=== PATIENT | female | born 1970 | race Caucasian/White ===

== ENCOUNTER 2018-01-31 21:42 | Emergency (ER) | END 2018-01-31 23:35 | disposition home or self-care (01) ==

== ENCOUNTER 2018-03-27 08:34 | Day surgery (SDC) | END 2018-03-27 14:45 | disposition home or self-care (01) ==

== ENCOUNTER 2018-11-09 08:28 | Emergency (ER) | payer BC ==
[~2018-11-09] VITALS: Wt 78.2 kg
[~2018-11-09 08:28] MED LIST: IBUP-1545 PO; LEVO125T7 PO
[2018-11-09 08:30] VITALS: BP 126/74; RESP 20
[2018-11-09 10:38] VITALS: PULSE 81
[2018-11-09] MEDS ORDERED: IBUP-1542 PO (10:39)
[2018-11-09] MEDS ORDERED: LEVO750T25 PO (10:40)
--- NOTE | 2018-11-15 14:32 | ERD ---
ER Documentation Chief Complaint Chief Complaint COUGH, EAR PAIN, CONGESTION, SORE THROAT, FEVER X 2 WEEKS HPI Patient is a 48-year-old female with no past medical history presents to the ER for concerns of intermittent fevers, cough, ear pain and nasal congestion for the last 2 weeks. Patient states her cough is primarily dry however occasionally productive. Patient denies any chest pain or shortness of breath. Patient states she has tried 2 antibiotics which were prescribed by her primary care physician which have not helped. Patient states 1 of the antibiotics was amoxicillin. Patient reports tactile fevers. Patient reports throat pain now she denies drooling or trismus. Patient denies any neck pain or neck stiffness. Patient denies any nausea, vomiting, abdominal pain or diarrhea. Patient denies any recent travel. Patient's son is also sick contact. ROS All systems reviewed and are negative except as per history of present illness. Medications Home Meds Active Scripts Levofloxacin* (Levaquin*) 750 Mg Tablet, 750 MG PO DAILY for 5 Days, TAB Prov:SHAY SCALES PA-C 11/09/18 Ibuprofen* (Motrin*) 600 Mg Tab, 600 MG PO Q6, #30 TAB Prov:SHAY SCALES PA-C 11/09/18 Reported Medications Ibuprofen* (Ibuprofen*) 800 Mg Tab, 800 MG PO Q6H PRN for PAIN, TAB 03/27/18 Levothyroxine Sodium* (Levothyroxine Sodium*) 125 Mcg Tablet, 125 MCG PO BEFORE BREAKFAST, #30 TAB 03/27/18 Allergies Allergies: Coded Allergies: No Known Drug Allergies (Verified Allergy, Unknown, 03/27/18) PMhx/Soc History of Surgery: No (srinivas breast implant, hysterectomy) Anesthesia Reaction: No Hx Neurological Disorder: No Hx Respiratory Disorders: No Hx Cardiac Disorders: No Hx Psychiatric Problems: No Hx Miscellaneous Medical Probl: No Hx Alcohol Use: No Hx Substance Use: No Hx Tobacco Use: No Smoking Status: Never smoker FmHx Family History: No diabetes, No coronary disease, No other Physical Exam Physical Exam GENERAL: Well-developed, well-nourished female. Appears in no acute distress. Speaking in full sentences HEAD: Normocephalic, atraumatic. EYES: Pupils are equally reactive bilaterally. EOMs grossly intact. No conjunctival erythema. ENT: Bilateral TMs are nonerythematous, nonbulging. Nasal congestion noted on exam. Oropharynx slightly erythematous. No exudates noted. Moist mucous membranes. No uvula deviation. No kissing tonsils. NECK: Supple. No meningismus. Normal range of motion of the neck. LUNG: Clear to auscultation bilaterally. No rhonchi, wheezing, rales or coarse breath sounds. HEART: Regular rate and rhythm. No murmurs, rubs or gallops. EXTREMITIES: Equal pulses bilaterally. No peripheral clubbing, cyanosis or edema. No unilateral leg swelling. NEUROLOGIC: Alert and oriented. Moving all four extremities without any difficulty. Normal speech. Steady gait. SKIN: Normal color. Warm and dry. No rashes or lesions. Procedures/MDM ED COURSE: The patient was stable throughout ED course. I kept the patient and/or family informed of laboratory and diagnostic imaging results throughout the ED course. DIAGNOSTIC IMAGING: Read by radiologist. Patient: JAYESH PAZ : 1970 Age: 48 Sex: F MR #: [id number] DOS: 11/09/18 0906 Ordering MD: SHAY SCALES PA-C Location: [facility] Room/Bed: PROCEDURE: XR Chest. CLINICAL INDICATION: chest pain, cough TECHNIQUE: Single frontal view of the chest was obtained COMPARISON: None FINDINGS: The heart and mediastinum are within normal limits. There is a questionable 1.4 cm right upper lobe nodular opacity. There is no pleural effusion or pneumothorax. RPTAT: AA IMPRESSION: Questionable 1.4 cm right upper lobe nodular opacity. Further evaluation with CT chest is recommended. .Jose Russell MD, MD Date Time Electronically viewed and signed by .Jose Russell MD, MD on 11/09/2018 09:29 .S/ CC: SHAY CSALES PA-C [phone] DIAGNOSTIC IMAGING REPORT Patient: JAYESH PZA : 1970 Age: 48 Sex: F MR #: [id number] DOS: 11/09/18 0000 Ordering MD: SHAY SCALES PA-C Location: [facility] Room/Bed: PROCEDURE: CT chest without contrast. CLINICAL INDICATION: Cough, fever. TECHNIQUE: CT of the chest without contrast was performed on a multidetector high-resolution CT scanner. High-resolution thin slice coronal and sagittal imaging was obtained from the axial source images. The total exam CTDI equals 11 mGy, and the total exam DLP equals 419 mGy-cm. DICOM images are available. One or more of the following dose reduction techniques were utilized: 1.) Automated exposure control 2.) Adjustment of the mA +/- kV according to patient's size 3.) Use of iterative reconstruction technique. COMPARISON: Chest x-ray 11/09/2018 FINDINGS: No focal thyroid lesions are seen. There is no supraclavicular, axillary, mediastinal or hilar lymphadenopathy. Bilateral breast implants are noted. The heart is normal in size. There is no pericardial effusion. The thoracic aorta and main pulmonary artery are normal in caliber. There is no pneumothorax. There is a nodular area of consolidation right upper lobe measuring 9 mm. There are adjacent tiny satellite cluster of nodules. Findings are favored to be infectious in nature given the clinical history. The central airways are patent. there are no definite suspicious nodules identified to correspond to the abnormality identified on recent x-ray. Image portions of the abdomen demonstrates cholelithiasis. The visualized osseous structures are intact. IMPRESSION: Nodular area of consolidation within the right upper lobe with adjacent satellite tiny nodular opacities. Findings are favored to be infectious in natur e given the clinical history. Consider interval follow-up in 3 months to ensure resolution. No definite suspicious nodules to correspond to the abnormality identified on recent chest x-ray. Cholelithiasis. RPTAT: HAP Admit-r Neeraj, Physician Date Time Electronically viewed and signed by Benito Pickard, Physician on 11/09/2018 10:10 AP/ CC: SHAY SCALES PA-C [id number] MEDICAL DECISION MAKING: This is a 48-year-old female who presents with intermittent tactile fevers, cough, sore throat, ear pain and nasal congestion for the last 2 weeks. Patient was afebrile. Patient was not hypoxic. Patient denied recent travel. Cardiac exam was normal. Lung exam was normal. Chest x-ray was obtained and showed a questionable 1.4 cm right upper lobe nodular opacity. Further evaluation with CT imaging was advised. CT chest showed Nodular area of consolidation within the right upper lobe with adjacent satellite tiny nodular opacities. Findings are favored to be infectious in nature given the clinical history. Consider interval follow-up in 3 months to ensure resolution. CT chest findings were discussed with supervising physician Dr. Metcalf. Findings were most consistent with pneumonia given patient's history. Patient reported taking 2 antibiotics recently which did not help with her symptoms, 1 of them being amoxicillin. At this time, Levaquin will be prescribed for broader coverage. Dr. Metcalf agreed that this management was appropriate. CT imaging results were discussed with the patient and her daughter. I did advise both individuals that the patient will need repeat CT imaging in 3 months per recommendation of radiologist. Repeat CXR was also advised in 1 week to ensure resolution/ improvement of pneumonia. Strict ER precautions were advised. Patient was advised to monitor her symptoms closely and return the ER for any new or worsening symptoms. Patient and daughter understood and agreed with this plan. At this time, the patient presentation is most consistent with an Differential diagnosis included but was not limited to acute coronary syndrome, myocarditis, endocarditis, pericarditis, lung abscess, malignancy, pneumothorax, CHF, TB, influenza, pertussis, GERD, allergic rhinitis, Strep pharyngitis, meningitis, sepsis. Patient was nontoxic, non-ill appearing prior to discharge. PRESCRIPTIONS: Levaquin, ibuprofen DISCHARGE: At this time, patient is stable for discharge and outpatient management. I have instructed the patient to follow-up with his/her primary care physician in 1-2 days. If symptoms persist, patient may need to see a specialist for further examinations and testing. I have instructed the patient to promptly return to the ER at any time for any new or worsening symptoms including increased increased pain, fever, nausea, vomiting, numbness, shortness of breath, weakness, ongoing wheezing, retractions or LOC. The patient and/or family expressed understanding of and agreement with this plan. All questions were answered. Home care instructions were provided. Disclaimer: Inadvertent spelling and grammatical errors are likely due to EHR/dictation software use and do not reflect on the overall quality of patient care. Also, please note that the electronic time recorded on this note does not necessarily reflect the actual time of the patient encounter. Departure Diagnosis: Primary Impression: Pneumonia Pneumonia type: due to unspecified organism Laterality: unspecified laterality Lung location: unspecified part of lung Qualified Codes: J18.9 - Pneumonia, unspecified organism Additional Impression: Cough Condition: Fair Patient Instructions: Pneumonia (Adult) Additional Instructions: Llame al doctor MAANA y adelaide claudy CINDY PARA DENTRO DE 1-2 GIRALDO.Dgale a la secretaria que nosotros le instruimos hacer esta cindy.Avise o llame si ulrich condicin se empeora antes de la cindy. Regresa aqui si peor o no mejor. SHAY SCALES PA-C Nov 15, 2018 14:29
== END 2018-11-09 10:49 | disposition home or self-care (01) ==
LOC: FTE 08:28
DX: J18.9 Pneumonia, unspecified organism (principal)
CPT/HCPCS: 71045; 71250; 99284; Z7610